=== PATIENT | female | born 2000 ===

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

== ENCOUNTER → 2021-06-29 | Outpatient (REF) ==
[~2021-06-29] MED LIST: ACET-683 PO
== END ==
LOC: M EMP 07:40
PROVIDERS: ATTEND Family Medicine
DX: Z20.822 Contact with and (suspected) exposure to COVID-19 (principal)

== ENCOUNTER → 2021-12-01 | Outpatient (REF) | LOC: M LABSMTC 11:07 | PROVIDERS: ATTEND Family Medicine | DX: Z11.52 Encounter for screening for COVID-19 (principal) ==